=== PATIENT | male | born 1970 | race Caucasian/White ===

== ENCOUNTER 2016-04-22 15:53 | Emergency (ER) | payer OTHER ==
[~2016-04-22] VITALS: Ht 195.6 cm; Wt 138.0 kg
[~2016-04-22 15:53] MED LIST: ASPI-973 PO; IBUP-1827 PO; METO25TA6 PO; PANT40TA2 PO; PRAV40TA PO
[2016-04-22 16:04] VITALS: BP 142/83; PULSE 85; RESP 15; O2SAT 96
[2016-04-22 16:22] LABS: BASOPHILS % (AUTO) 0.2 % (0-3); EOSINOPHILS % (AUTO) 3.5 % (0-5); Mean Corpuscular Hemoglobin 30.2 pg (27.0-35.0); Mean Corpuscular Volume 89.8 fL (81-100); NEUTROPHILS % (AUTO) 61.8 % (40-74); Platelet Count 287 bil/L (150-400)
--- NOTE | 2016-04-22 16:57 | DRSVH ---
PROCEDURE: X-RAY CHEST ONE VIEW, PORTABLE ([id number]) INDICATIONS: cough, chest pain TECHNIQUE: One view of the chest was acquired. COMPARISON: [facility], CR, XR CHEST 1VW (PORTABLE), 12/04/2015, 12:25. FINDINGS: Surgical changes and devices: None. Lungs and pleura: No pleural effusions or pneumothorax. Lungs are clear. Mediastinum: Mediastinal contours appear normal. Heart size is normal. Bones and chest wall: No suspicious bony lesions. Overlying soft tissues appear unremarkable. IMPRESSION: No acute disease Dictated by: Harry Benavidez M.D. on 04/22/2016 at 16:55 Approved by: Harry Benavidez M.D. on 04/22/2016 at 16:55
[2016-04-22 17:03] LABS: TROPONIN T < 0.010 ug/L (0.0-0.011)
== END 2016-04-22 18:15 | disposition left against medical advice (07) ==
LOC: EDBD 15:53 → EDUNIT# 15:53 → SED 15:53
DX: Z53.21 Procedure and treatment not carried out due to patient leaving prior to being seen by health care provider (principal)